=== PATIENT | male | born 1935 | race Caucasian/White ===

== ENCOUNTER 2017-06-25 11:04 | Inpatient (IN) | payer OTHER ==
[~2017-06-25] VITALS: Ht 177.8 cm; Wt 129.3 kg
[~2017-06-25 11:04] MED LIST: ACTIGALL300 MG PO; ADVAIR 500/501 DISK IH; ALPRAZOLAM1 MG PO; FUROSEMIDE80 MG PO; LEVEMIR100 UNIT/2 SC; NEURONTIN100 MG PO; PANTOPRAZOLE SO40 MG PO; SPIRIVA RESPIMAT4 G1 IH; TERBUTALINE SULF5 MG PO
[2017-06-25 12:13] LABS: BASOPHIL (%) 0.4 % (0-1); EOSINOPHIL (%) 5.6 % (0-5); EOSINOPHIL COUNT 0.4 K/uL (0-0.3); HEMATOCRIT 44.2 % (38.0-50.0); HEMOGLOBIN 14.1 G/DL (12.5-16.6); IMMATURE GRANULOCYTE (%) 0.5 % (0.0-0.7); LYMPHOCYTE (%) 14.1 % (15-42); MCH 29.9 PG (29.0-34.0); MCHC 31.9 G/DL (30.0-36.0); MCV 93.8 FL (86-99); MONOCYTE (%) 9.1 % (3-12); MONOCYTE COUNT 0.7 K/uL (0-0.8); NEUTROPHIL (%) 70.3 % (45-76); NEUTROPHIL COUNT 5.1 K/uL (1.8-6.4); PLATELET COUNT 171 K/uL (156-360); RBC DIS.WIDTH-CV 15.2 % (11.8-14.6); RBC DIS.WIDTH-SD 52.4 % (39-53); RED BLOOD COUNT 4.71 M/uL (4.00-5.50); WHITE BLOOD COUNT 7.3 K/uL (4.1-10.2)
[2017-06-25 12:21] LABS: INTER. NORMALIZED RATIO 1.2
[2017-06-25 12:23] LABS: CHLORIDE 105 mEq/L (99-109); POTASSIUM 3.9 mEq/L (3.7-5.4); PTT 31.7 SEC (25-37); SODIUM 145 mEq/L (136-147)
[2017-06-25 12:24] LABS: GLUCOSE 77 mg/dL (70-99)
[2017-06-25 12:28] LABS: CREATININE 1.3 mg/dL (0.6-1.3); GFR ESTIMATE (CALCULATED) 56 mL/min/ (58.99-99999)
[2017-06-25 12:29] LABS: UREA NITROGEN (BUN) 15 mg/dL (9-23)
[2017-06-25 12:36] LABS: TROP-I INTERPRETATION NEGATIVE; TROPONIN-I 0.05 ng/mL (0.0-0.30)
[2017-06-25 15:17] VITALS: BP 145/79
[2017-06-25] MEDS ORDERED: MOTRIN800 MG PO (15:32)
[2017-06-25] MEDS ORDERED: ALBUTEROL2.5 MG/3 M IH (15:34)
[2017-06-25] MEDS ORDERED: CARDIZEM30 MG PO (15:35)
[2017-06-25] MEDS ORDERED: INCRUSE ELLI62.5 MCG IH (15:36)
[2017-06-25] MEDS ORDERED: LISINOPRIL5 MG PO (15:37)
[2017-06-25] MEDS ORDERED: LYRICA75 MG PO (15:38)
[2017-06-25] MEDS ORDERED: URSODIOL300 MG PO (15:39)
[2017-06-25] MEDS ORDERED: FLONASE16 G1 BOTH NARES (15:41)
[2017-06-25] MEDS ORDERED: KLOR-CON M2020 MEQ PO (15:42)
[2017-06-25] MEDS ORDERED: REGLAN5 MG PO (15:43)
[2017-06-25 18:04] LABS: TROP-I INTERPRETATION NEGATIVE; TROPONIN-I 0.06 ng/mL (0.0-0.30)
[2017-06-25 19:39] VITALS: BP 163/76
[2017-06-25 23:46] VITALS: BP 150/86
[2017-06-26 03:58] VITALS: BP 163/94
[2017-06-26 05:19] LABS: HEMATOCRIT 47.1 % (38.0-50.0); HEMOGLOBIN 14.5 G/DL (12.5-16.6); MCH 28.9 PG (29.0-34.0); MCHC 30.8 G/DL (30.0-36.0); MCV 93.8 FL (86-99); PLATELET COUNT 198 K/uL (156-360); RBC DIS.WIDTH-CV 15.1 % (11.8-14.6); RBC DIS.WIDTH-SD 52.1 % (39-53); RED BLOOD COUNT 5.02 M/uL (4.00-5.50); WHITE BLOOD COUNT 5.7 K/uL (4.1-10.2)
[2017-06-26 05:34] LABS: CHLORIDE 97 MEQ/L (99-109); SODIUM 138 MEQ/L (136-147)
[2017-06-26 05:40] LABS: CREATININE 1.7 MG/DL (0.6-1.3); GFR ESTIMATE (CALCULATED) 41 mL/min/ (58.99-99999)
[2017-06-26 05:44] LABS: GLUCOSE 358 mg/dL (70-99); POTASSIUM 4.7 MEQ/L (3.7-5.4); UREA NITROGEN (BUN) 24 mg/dL (9-23)
[2017-06-26 07:40] VITALS: BP 131/85
[2017-06-26 09:18] LABS: BASE EXCESS -0.6 mEq/L (-3 to +3); BICARBONATE 26.7 mEq/L (22-26); CARBOXY HGB 2.2 % (0-5); COMMENTS - BLOOD GASES A+C+; DEVICE NC; METHEMOGLOBIN 1.5 % (0-1.5); O2 FLOW 3 L/MIN; PCO2 53 mm Hg (35-45); PO2 89 mm Hg (80-100); SITE RR; TOTAL RESP RATE 24 resp/min; pH 7.31 (7.35-7.45)
[2017-06-26 15:20] VITALS: BP 131/78
[2017-06-26 19:22] VITALS: BP 161/100
[2017-06-26 23:37] VITALS: BP 189/93
[2017-06-26 23:44] VITALS: BP 155/84
[2017-06-27 04:33] VITALS: BP 94/54
[2017-06-27 06:19] LABS: CHLORIDE 97 MEQ/L (99-109); CREATININE 1.6 MG/DL (0.6-1.3); GFR ESTIMATE (CALCULATED) 44 mL/min/ (58.99-99999); GLUCOSE 358 mg/dL (70-99); POTASSIUM 4.9 MEQ/L (3.7-5.4); SODIUM 138 MEQ/L (136-147)
[2017-06-27 06:24] LABS: UREA NITROGEN (BUN) 37 mg/dL (9-23)
[2017-06-27 08:04] VITALS: BP 161/72
[2017-06-27 12:05] VITALS: BP 159/78
[2017-06-27 15:29] VITALS: BP 105/63
[2017-06-27 20:01] VITALS: BP 173/112
[2017-06-27 21:46] VITALS: BP 135/79
[2017-06-28] VITALS (7 sets, daily range): BP systolic 113–174; BP diastolic 65–85
[2017-06-28 06:53] LABS: CHLORIDE 95 MEQ/L (99-109); CREATININE 1.6 MG/DL (0.6-1.3); GFR ESTIMATE (CALCULATED) 44 mL/min/ (58.99-99999); GLUCOSE 278 mg/dL (70-99); POTASSIUM 4.9 MEQ/L (3.7-5.4); SODIUM 138 MEQ/L (136-147); UREA NITROGEN (BUN) 42 mg/dL (9-23)
[2017-06-29 03:41] VITALS: BP 174/85
[2017-06-29 06:42] LABS: CHLORIDE 95 MEQ/L (99-109); CREATININE 1.7 MG/DL (0.6-1.3); GFR ESTIMATE (CALCULATED) 41 mL/min/ (58.99-99999); GLUCOSE 304 mg/dL (70-99); POTASSIUM 4.4 MEQ/L (3.7-5.4); SODIUM 138 MEQ/L (136-147); UREA NITROGEN (BUN) 45 mg/dL (9-23)
[2017-06-29 08:02] VITALS: BP 159/84
[2017-06-29 11:24] LABS: MAGNESIUM 2.4 mg/dl (1.3-2.7)
[2017-06-29 12:13] VITALS: BP 183/83
[2017-06-29 15:51] VITALS: BP 172/88
[2017-06-29 19:20] VITALS: BP 138/69
[2017-06-29 23:17] VITALS: BP 144/71
[2017-06-30 02:55] VITALS: BP 147/78
[2017-06-30 06:20] LABS: CHLORIDE 98 MEQ/L (99-109); CREATININE 1.8 MG/DL (0.6-1.3); GFR ESTIMATE (CALCULATED) 39 mL/min/ (58.99-99999); GLUCOSE 213 mg/dL (70-99); POTASSIUM 4.7 MEQ/L (3.7-5.4); SODIUM 143 MEQ/L (136-147); UREA NITROGEN (BUN) 53 mg/dL (9-23)
[2017-06-30 07:53] VITALS: BP 143/61
[2017-06-30 11:03] LABS: HEMOGLOBIN A1c (GLYCOHEMOGLOB) 8.6 % (Below 5.7)
[2017-06-30 12:19] VITALS: BP 135/61
[2017-06-30 16:16] VITALS: BP 132/60
[2017-06-30 19:48] VITALS: BP 152/63
[2017-07-01 00:17] VITALS: BP 154/72
[2017-07-01 05:57] LABS: BASOPHIL (%) 0.1 % (0-1); EOSINOPHIL (%) 0 % (0-5); HEMATOCRIT 45.6 % (38.0-50.0); HEMOGLOBIN 14.3 G/DL (12.5-16.6); IMMATURE GRANULOCYTE (%) 0.8 % (0.0-0.7); LYMPHOCYTE (%) 2.7 % (15-42); LYMPHOCYTE COUNT 0.3 K/uL (1.0-2.8); MCH 29.5 PG (29.0-34.0); MCHC 31.4 G/DL (30.0-36.0); MCV 94.2 FL (86-99); MONOCYTE (%) 4.4 % (3-12); MONOCYTE COUNT 0.5 K/uL (0-0.8); NEUTROPHIL COUNT 9.3 K/uL (1.8-6.4); PLATELET COUNT 168 K/uL (156-360); RBC DIS.WIDTH-CV 15.1 % (11.8-14.6); RBC DIS.WIDTH-SD 52.4 % (39-53); RED BLOOD COUNT 4.84 M/uL (4.00-5.50); WHITE BLOOD COUNT 10.1 K/uL (4.1-10.2)
[2017-07-01 06:14] LABS: CHLORIDE 98 MEQ/L (99-109); CREATININE 1.6 MG/DL (0.6-1.3); GFR ESTIMATE (CALCULATED) 44 mL/min/ (58.99-99999); GLUCOSE 218 mg/dL (70-99); MAGNESIUM 2.7 mg/dl (1.3-2.7); PHOSPHORUS 4.6 mg/dL (2.5-4.9); POTASSIUM 4.8 MEQ/L (3.7-5.4); SODIUM 142 MEQ/L (136-147); UREA NITROGEN (BUN) 54 mg/dL (9-23)
[2017-07-01 07:53] VITALS: BP 136/65
[2017-07-01 12:13] VITALS: BP 153/67
[2017-07-01 16:10] VITALS: BP 148/65
[2017-07-01 19:26] VITALS: BP 167/73
[2017-07-01 21:04] LABS: APPEARANCE CLEAR ((CLEAR)); BILIRUBIN NEGATIVE; BLOOD NEGATIVE; COLOR YELLOW ((YELLOW)); GLUCOSE (STRIP) >=500; KETONES NEGATIVE; LEUKOCYTES NEGATIVE; NITRITE NEGATIVE; PROTEIN (STRIP) NEGATIVE; SPECIFIC GRAVITY 1.016 (1.000-1.030); UROBILINOGEN 0.2 MG/DL (0.2-1.0)
[2017-07-02] VITALS (7 sets, daily range): BP systolic 133–171; BP diastolic 65–74
[2017-07-02 06:21] LABS: BASOPHIL (%) 0.2 % (0-1); EOSINOPHIL (%) 0 % (0-5); HEMATOCRIT 48.8 % (38.0-50.0); HEMOGLOBIN 14.9 G/DL (12.5-16.6); IMMATURE GRANULOCYTE (%) 1.5 % (0.0-0.7); LYMPHOCYTE (%) 2.9 % (15-42); LYMPHOCYTE COUNT 0.5 K/uL (1.0-2.8); MCH 28.9 PG (29.0-34.0); MCHC 30.5 G/DL (30.0-36.0); MCV 94.6 FL (86-99); NEUTROPHIL (%) 89.4 % (45-76); NEUTROPHIL COUNT 14.6 K/uL (1.8-6.4); PLATELET COUNT 188 K/uL (156-360); RBC DIS.WIDTH-CV 15.1 % (11.8-14.6); RBC DIS.WIDTH-SD 52.1 % (39-53); RED BLOOD COUNT 5.16 M/uL (4.00-5.50); WHITE BLOOD COUNT 16.3 K/uL (4.1-10.2)
[2017-07-02 06:37] LABS: CHLORIDE 100 MEQ/L (99-109); CREATININE 1.6 MG/DL (0.6-1.3); GFR ESTIMATE (CALCULATED) 44 mL/min/ (58.99-99999); GLUCOSE 226 mg/dL (70-99); POTASSIUM 4.7 MEQ/L (3.7-5.4); SODIUM 145 MEQ/L (136-147); UREA NITROGEN (BUN) 57 mg/dL (9-23)
[2017-07-03 03:34] VITALS: BP 131/81
[2017-07-03 05:40] LABS: BASOPHIL (%) 0.3 % (0-1); EOSINOPHIL (%) 0.1 % (0-5); HEMATOCRIT 46.5 % (38.0-50.0); HEMOGLOBIN 14.3 G/DL (12.5-16.6); IMMATURE GRANULOCYTE (%) 1.9 % (0.0-0.7); LYMPHOCYTE (%) 7.1 % (15-42); MCH 29.2 PG (29.0-34.0); MCHC 30.8 G/DL (30.0-36.0); MCV 95.1 FL (86-99); MONOCYTE (%) 8.3 % (3-12); MONOCYTE COUNT 1.1 K/uL (0-0.8); NEUTROPHIL (%) 82.3 % (45-76); NEUTROPHIL COUNT 11.1 K/uL (1.8-6.4); PLATELET COUNT 138 K/uL (156-360); RBC DIS.WIDTH-CV 15.1 % (11.8-14.6); RBC DIS.WIDTH-SD 52.8 % (39-53); RED BLOOD COUNT 4.89 M/uL (4.00-5.50); WHITE BLOOD COUNT 13.5 K/uL (4.1-10.2)
[2017-07-03 05:57] LABS: CHLORIDE 104 MEQ/L (99-109); CREATININE 1.3 MG/DL (0.6-1.3); GFR ESTIMATE (CALCULATED) 56 mL/min/ (58.99-99999); GLUCOSE 134 mg/dL (70-99); POTASSIUM 4.7 MEQ/L (3.7-5.4); SODIUM 144 MEQ/L (136-147); UREA NITROGEN (BUN) 51 mg/dL (9-23)
[2017-07-03 07:55] VITALS: BP 149/79
[2017-07-03 11:55] VITALS: BP 141/70
[2017-07-03 15:30] VITALS: BP 157/77
[2017-07-03 19:24] VITALS: BP 136/63
[2017-07-03 23:32] VITALS: BP 164/71
[2017-07-04 03:50] VITALS: BP 152/75
[2017-07-04 07:41] VITALS: BP 149/93
[2017-07-04 11:14] VITALS: BP 138/63
[2017-07-04] MEDS ORDERED: ELIQUIS2.5 MG PO (11:34)
[2017-07-04] MEDS ORDERED: SPIRONOLACTONE25 MG PO (11:35)
[2017-07-04] MEDS ORDERED: CARDIZEM CD,CA180 MG PO (11:35)
[2017-07-04] MEDS ORDERED: ALPRAZOLAM0.5 MG PO (11:37)
[2017-07-04] MEDS ORDERED: FUROSEMIDE40 MG PO (11:52)
[2017-07-04] MEDS ORDERED: PREDNISONE10 MG PO (11:55)
[2017-07-04 12:51] LABS: CHLORIDE 99 MEQ/L (99-109); CREATININE 1.1 MG/DL (0.6-1.3); GFR ESTIMATE (CALCULATED) > 59 mL/min/ (58.99-99999); GLUCOSE 151 mg/dL (70-99); POTASSIUM 4.9 MEQ/L (3.7-5.4); SODIUM 140 MEQ/L (136-147); UREA NITROGEN (BUN) 41 mg/dL (9-23)
== END 2017-07-04 15:48 | DRG 308 ==
LOC: EME 11:04 → EDOF 13:02 → 5SOUTH 13:02 → ENRESERV 13:03 → 5SOUTH 15:01
PROVIDERS: Emergency Medicine; Hospitalist; Internal Medicine; Internal Medicine Nephrology; Internal Medicine Pulmonary Disease; Nurse Practitioner Family; Physician Assistant; Physician Assistant Medical
PROC: 5A09357 Assistance with Respiratory Ventilation, Less than 24 Consecutive Hours, Continuous Positive Airway Pressure (ICD-10-PCS; principal; 2017-06-26)
DX: I48.91 Unspecified atrial fibrillation (principal); I48.92 Unspecified atrial flutter; J44.1 Chronic obstructive pulmonary disease with (acute) exacerbation; I13.0 Hypertensive heart and chronic kidney disease with heart failure and stage 1 through stage 4 chronic kidney disease, or unspecified chronic kidney disease; I50.23 Acute on chronic systolic (congestive) heart failure; J96.01 Acute respiratory failure with hypoxia; N17.9 Acute kidney failure, unspecified; T50.2X5A Adverse effect of carbonic-anhydrase inhibitors, benzothiadiazides and other diuretics, initial encounter; E11.22 Type 2 diabetes mellitus with diabetic chronic kidney disease; N18.3 Chronic kidney disease, stage 3 (moderate); J98.11 Atelectasis; Z66 Do not resuscitate; K21.9 Gastro-esophageal reflux disease without esophagitis; F41.9 Anxiety disorder, unspecified; M54.30 Sciatica, unspecified side; E11.65 Type 2 diabetes mellitus with hyperglycemia; E11.40 Type 2 diabetes mellitus with diabetic neuropathy, unspecified; T38.0X5A Adverse effect of glucocorticoids and synthetic analogues, initial encounter; I49.3 Ventricular premature depolarization; I27.20 Pulmonary hypertension, unspecified; G89.29 Other chronic pain; R10.9 Unspecified abdominal pain; E66.2 Morbid (severe) obesity with alveolar hypoventilation; Z79.4 Long term (current) use of insulin; Z99.81 Dependence on supplemental oxygen; Z87.891 Personal history of nicotine dependence; Z86.718 Personal history of other venous thrombosis and embolism; Z86.711 Personal history of pulmonary embolism; Z98.84 Bariatric surgery status; Z68.41 Body mass index [BMI] 40.0-44.9, adult; Z91.19 Patient's noncompliance with other medical treatment and regimen
CPT/HCPCS: 36600; 71045; 71046; 76770; 80048; 81003; 82803; 82948; 83036; 83605; 83735; 83880; 84100; 84145 90; 84484; 85025; 85027; 85610; 85730; 87040; 92526 GN; 92610 GN; 93005; 93306; 94640; 94640 76; 94660; 94760; 94799; 97530 GP; 99202; 99281; 99285; J0456; J0696; J1160; J1815; J1940; J2920; J2930; J7512